=== PATIENT | male | born 1955 | race Caucasian/White ===

== ENCOUNTER 2017-08-28 14:40 | Inpatient (IN) | payer MEDICARE ==
[~2017-08-28] VITALS: Ht 182.9 cm; Wt 77.8 kg
[~2017-08-28 14:40] MED LIST: ACETYLCYST200 MG/1 M PO; ADVAIR 500-501 EACH INH; ALBUTEROL0.63 MG/3; ALLEGRA; ASPIRIN325 M2 PO; ASPIRIN81 MG PO; BENICAR; BENICAR20 MG PO; CEFIXIME; COUMADIN; DALIRESP500 MCG PO; DOXYCYCLINE HY100 MG PO; LASIX40 MG PO; LOSARTAN POTASS25 MG PO; MUCINEX; NEXIUM40 MG PO; NICOTINE PATCH1 EAC1 TOP; PLAVIX75 MG PO; PREDNISONE20 MG PO; PRO AIR; PROAIR HFA INH8.5 GM INH; Z DILTIAZEM PO; Z.0.BYSTOLIC5 MG; Z.0.COUMADIN6 MG PO; Z.0.DALIRESP500 MCG; Z.0.LASIX40 MG PO; Z.0.PREDNISONE10 MG; Z.0.SPIRIVA18 MCG INH; ZITHROMAX500 MG
[2017-08-28] MEDS ORDERED: ALBUTEROL SULF 0.083% NEB SOLN 3 ML NEB NEB STA (14:45)
[2017-08-28] MEDS ORDERED: IPRATROPIUM BROMIDE 0.02% 2.5 ML NEB NEB STA (14:45)
[2017-08-28] MEDS ORDERED: MAGNESIUM SULFATE 2GM/50ML 50 ML IV ONE (14:45)
[2017-08-28] MEDS ORDERED: CEFTRIAXONE SOD 1 GM VIAL IV SCH (14:45)
[2017-08-28 15:09] LABS: BASOPHILS # (AUTO) 0.1 (0.0-0.1); BASOPHILS % 0.7 % (0.0-1.0); EOSINOPHILS # (AUTO) 0.1 (0.0-0.4); EOSINOPHILS % 0.3 % (0.0-6.0); HEMATOCRIT 48.9 % (38.2-49.6); HEMOGLOBIN 17.3 g/dL (14.0-18.0); LYMPHOCYTES % 22.9 % (18.0-39.1); MEAN CORPUSCULAR HEMOGLOBIN 31.3 pg (28-32); MEAN CORPUSCULAR HGB CONC 35.4 g/dL (31-35); MEAN CORPUSCULAR VOLUME 88.4 fL (81-99); MONOCYTES # (AUTO) 1.4 (0.2-0.8); NEUTROPHILS # (AUTO) 11.2 (2.1-6.9); NEUTROPHILS % 64.8 % (38.7-80.0); PLATELET COUNT 270 x10e3/uL (140-360); RED BLOOD COUNT 5.53 x10e6/uL (4.3-5.7); RED CELL DISTRIBUTION WIDTH 12.4 % (11.7-14.4)
[2017-08-28 15:20] LABS: INR 1.06; PARTIAL THROMBOPLASTIN TIME 25.2 seconds (23.8-35.5)
[2017-08-28 15:27] LABS: ALANINE AMINOTRANSFERASE 11 IU/L (0-55); ALBUMIN 3.6 g/dL (3.5-5.0); ALBUMIN/GLOBULIN RATIO 0.8 (0.8-2.0); ALKALINE PHOSPHATASE 82 IU/L (40-150); ANION GAP 14.7 mmol/L (8-16); BLOOD UREA NITROGEN 19 mg/dL (7-26); BUN/CREATININE RATIO 23 (6-25); CALCIUM 9.7 mg/dL (8.4-10.2); CARBON DIOXIDE 28 mmol/L (22-29); CHLORIDE 102 mmol/L (98-107); CREATINE KINASE 43 IU/L (30-200); CREATININE, SERUM 0.83 mg/dL (0.72-1.25); EST GLOMERULAR FILTRATION RATE > 60 ML/MIN (60-); GLUCOSE 84 mg/dL (74-118); MAGNESIUM 2.5 MG/DL (1.3-2.1); POTASSIUM 3.7 mmol/L (3.5-5.1); SODIUM 141 mmol/L (136-145)
[2017-08-28 15:38] LABS: B-TYPE NATRIURETIC PEPTIDE2 < 10.0 pg/mL (0-100)
[2017-08-28 15:48] LABS: THYROID STIMULATING HORMONE 0.672 uIU/mL (0.350-4.940)
[2017-08-28 16:04] LABS: BILIRUBIN,URINE NEGATIVE (NEGATIVE); CLARITY,URINE CLEAR (CLEAR); COLOR,URINE YELLOW (YELLOW); KETONES,URINE NEGATIVE (NEGATIVE); LEUKOCYTE ESTERASE ,URINE NEGATIVE (NEGATIVE); NITRITE,URINE NEGATIVE (NEGATIVE); PROTEIN,URINE DIPSTICK NEGATIVE (NEGATIVE); URINE UROBILINOGEN 0.2 mg/dL (0.2 - 1)
[2017-08-28 16:15] LABS: WBC,URINE (MAN) 0-5 /HPF (0-5)
[2017-08-28 16:16] LABS: EPITHELIAL CELLS,URINE RARE /LPF
--- NOTE | 2017-08-28 16:20 | Diagnostic Imaging Report ---
PROCEDURE: CHEST SINGLE (PORTABLE) COMPARISON: Patients [facility], DX, CHEST SINGLE (PORTABLE), 01/29/2016, 17:23. INDICATIONS: RESPIRATORY DISTRESS FINDINGS: LUNGS: Bilateral upper lobe bullous change appears more prominent. Chronic appearing basilar interstitial findings. PLEURA: No effusions or pneumothorax. HEART \T\ MEDIASTINUM: The heart is within normal size-limits. BONES \T\ SOFT TISSUES: No acute findings. CONCLUSION: Bilateral upper lobe bullous changes. Goldy Rivers D.O. Dictated by: Goldy Rivers D.O. on 08/28/2017 at 16:21 Electronically approved by: Goldy Rivers D.O. on 08/28/2017 at 16:21
[2017-08-28 16:36] LABS: ABG PH 7.36 (7.31-7.41)
[2017-08-28 16:37] LABS: ABG HCO3 32 mmol/L (23-28); ABG PCO2 55 mmHg (41-51); ABG PO2 364 mmHg (80-105)
[2017-08-28 16:50] LABS: LYMPHOCYTES % (MANUAL) 18 % (19-48); METAMYELOCYTES % (MANUAL) 1 % (0-0); MONOCYTES % (MANUAL) 12 % (3.4-9.0); MYELOCYTES % (MANUAL) 1 % (0-0); NEUTROPHILS % (MANUAL) 64 % (40-74); NUCLEATED RED BLOOD CELLS 1; PLATELET ESTIMATE ADEQUATE; PLATELET MORPHOLOGY COMMENT NORMAL; RBC MORPHOLOGY COMMENT NORMAL
--- OUTSIDE RECORDS SUMMARY | 2017-08-28 18:43 | XMS REPORT ---
Author Author [facility] Address Unknown Phone Unavailable Care Team Providers Care Oral Surgery Physician Name Role Phone RAMAN CROSS Unavailable Unavailable Problems This patient has no known problems. Allergies, Adverse Reactions, Alerts This patient has no known allergies or adverse reactions. Medications This patient has no known medications. Results Test Description Test Time Test Comments Text Results Atomic Results Result Comments CHEST SINGLE (PORTABLE) [place] [address] Patient Name: PERRY CARROLL MR #: [id number] : 1955 Age/Sex: 62/M Req #: [id number] Adm Physician: Ordered by: KHUSHBOO RASMUSSEN UTILITY APPRAISER Report #: [id number] Location: ER Room/Bed: Procedure: [id number] DX/CHEST SINGLE (PORTABLE) Exam Date: 08/28/17 Exam Time: 1500 REPORT STATUS: Signed PROCEDURE: CHEST SINGLE (PORTABLE) COMPARISON: [facility], , CHEST SINGLE (PORTABLE), 01/29/2016, 17:23. INDICATIONS: RESPIRATORY DISTRESS FINDINGS: LUNGS: Bilateral upper lobe bullous change appears more prominent. Chronic appearing basilar interstitial findings. PLEURA: No effusions or pneumothorax. HEART T MEDIASTINUM: The heart is within normal size-limits. BONES T SOFT TISSUES: No acute findings. CONCLUSION: Bilateral upper lobe bullous changes. Felix Rivers D.O. Dictated by: Felix Rivers D.O. on 08/28/2017 at 16:21 Electronically approved by: Felix Rivers D.O. on 08/28/2017 at 16:21 Dictated By: FELIX RIVERS DO 1621 Transcribed By: ОЛЕГ on 08/28/17 1621 COPY TO: KHUSHBOO RASMUSSEN NP
[2017-08-28] MEDS: AZITHROMYCIN 500MG/NS 250 ML 250 ML IV SCH (19:13)
[2017-08-28] MEDS ORDERED: DILTIAZEM 24HR180 M1 PO (19:22)
[2017-08-28] MEDS ORDERED: DUONEB (19:22)
[2017-08-28] MEDS: SALMETEROL/FLUTICASONE 500/50 INH SCH (21:45)
[2017-08-28] MEDS ORDERED: ALBUTEROL SULFATE HFA 8GM INHALATION AEROSOL INH PRN (21:45)
[2017-08-28] MEDS ORDERED: ACETAMINOPHEN 325 MG TAB PO ONE (21:45)
[2017-08-28] MEDS: LOSARTAN POTASSIUM 25 MG TAB PO SCH (21:49)
[2017-08-28] MEDS: ALBUTEROL SULF 0.083% NEB SOLN 3 ML NEB NEB SCH ×2 (22:05→23:00)
[2017-08-28] MEDS: IPRATROPIUM BROMIDE 0.02% 2.5 ML NEB NEB SCH (22:05)
[2017-08-28] MEDS ORDERED: DILTIAZEM HCL 120 MG CAP CD PO ONE (22:23)
[2017-08-28] MEDS: DILTIAZEM HCL 120 MG CAP CD PO SCH (22:33)
[2017-08-28 23:10] VITALS: BP 204/115
[2017-08-28 23:15] VITALS: BP 179/97
[2017-08-28 23:30] VITALS: BP 143/85
[2017-08-28 23:45] VITALS: BP 147/85
[2017-08-29] VITALS (153 sets, daily range): BP systolic 55–211; BP diastolic 34–138
[2017-08-29 01:47] LABS: CREATINE KINASE 70 IU/L (30-200)
[2017-08-29] MEDS: ALBUTEROL SULF 0.083% NEB SOLN 3 ML NEB NEB SCH ×3 (02:10→11:50)
[2017-08-29] MEDS: IPRATROPIUM BROMIDE 0.02% 2.5 ML NEB NEB SCH ×2 (02:10→07:25)
[2017-08-29] MEDS ORDERED: PROPOFOL IV EMULSION 10MG/ML 100 ML ONE ×2 (03:15→10:34)
[2017-08-29] MEDS: CEFTRIAXONE SOD 1 GM VIAL IV SCH ×2 (04:20→15:36)
[2017-08-29] MEDS ORDERED: LORAZEPAM INJ 2 MG/ML VIAL IV PRN ×3 (04:30→15:00)
[2017-08-29] MEDS ORDERED: PROPOFOL IV EMULSION 10 MG/ML 50 ML VIAL IV PRN (04:30)
[2017-08-29] MEDS ORDERED: ACETAMINOPHEN 325 MG SUPP PR PRN (04:30)
[2017-08-29] MEDS ORDERED: LORAZEPAM INJ 2 MG/ML VIAL ONE (04:40)
[2017-08-29 04:44] LABS: ABG HCO3 32 mmol/L (23-28); ABG PCO2 62 mmHg (41-51); ABG PH 7.32 (7.31-7.41); ABG PO2 281 mmHg (80-105)
[2017-08-29] MEDS: LORAZEPAM INJ 2 MG/ML VIAL IV PRN ×4 (04:52→07:24)
--- NOTE | 2017-08-29 05:29 | Diagnostic Imaging Report ---
EXAMINATION: CHEST SINGLE (PORTABLE) INDICATION: Status post intubation COMPARISON: 08/28/2017 FINDINGS: TUBES and LINES: Endotracheal tube is visualized in good position 6 cm above the hallie. LUNGS: Lungs are well inflated. Decreased lung volume in the left lung base compatible with atelectasis versus aspiration. There is no evidence of pneumonia or pulmonary edema. PLEURA: No pleural effusion or pneumothorax. HEART AND MEDIASTINUM: The cardiomediastinal silhouette is unremarkable. There are atherosclerotic calcifications within the aorta. BONES AND SOFT TISSUES: No acute osseous lesion. Soft tissues are unremarkable. UPPER ABDOMEN: No free air under the diaphragm. IMPRESSION: 1. Minimal airspace opacity in the left lung base compatible with atelectasis versus aspiration. 2. Endotracheal tube is in good position. Signed by: Dr. Jayme Vieira M.D. on 08/29/2017 5:26 AM
[2017-08-29] MEDS ORDERED: HALOPERIDOL LACTATE 5 MG/ML VIAL IV PRN (05:30)
[2017-08-29] MEDS ORDERED: SODIUM CHLORIDE 0.45% 1,000 ML ONE (05:44)
[2017-08-29] MEDS ORDERED: SODIUM CHLORIDE 0.9% 1000ML 1,000 ML ONE ×2 (05:57→07:13)
[2017-08-29] MEDS ORDERED: SODIUM CHLORIDE 0.9% 1000ML 1,000 ML IV ONE (06:00)
[2017-08-29] MEDS: TIOTROPIUM 18 MCG INH POWDER INH SCH (06:00)
[2017-08-29] MEDS: SALMETEROL/FLUTICASONE 500/50 INH SCH ×2 (07:00→19:00)
[2017-08-29] MEDS ORDERED: IPRATROPIU0.2 MG/1 M NEB ×2 (07:40→07:41)
[2017-08-29] MEDS ORDERED: PREDNISONE20 MG PO (07:43)
[2017-08-29] MEDS ORDERED: ACETAMINOPHEN325 M1 PO (07:44)
[2017-08-29] MEDS ORDERED: DIPHENHYDRAMINE25 MG PO (07:45)
[2017-08-29] MEDS ORDERED: ASPIRIN81 MG (07:45)
[2017-08-29] MEDS ORDERED: SODIUM CHLORIDE 0.9% 1000ML 500 ML IV ONE (07:45)
[2017-08-29] MEDS ORDERED: FENTANYL CITRATE INJ 2,000 MCG in SODIUM CHLORIDE 0.9% 250ML 210 ML IV PRN (07:45)
[2017-08-29 08:08] LABS: BASOPHILS # (AUTO) 0.1 (0.0-0.1); BASOPHILS % 0.5 % (0.0-1.0); EOSINOPHILS # (AUTO) 0.1 (0.0-0.4); EOSINOPHILS % 0.6 % (0.0-6.0); HEMATOCRIT 41.5 % (38.2-49.6); LYMPHOCYTES # (AUTO) 3.9 (1.0-3.2); LYMPHOCYTES % 20.4 % (18.0-39.1); MEAN CORPUSCULAR HGB CONC 33.7 g/dL (31-35); MONOCYTES # (AUTO) 2.1 (0.2-0.8); MONOCYTES % 11.1 % (4.4-11.3); NEUTROPHILS # (AUTO) 12.5 (2.1-6.9); NEUTROPHILS % 64.6 % (38.7-80.0); PLATELET COUNT 204 x10e3/uL (140-360); RED BLOOD COUNT 4.51 x10e6/uL (4.3-5.7); RED CELL DISTRIBUTION WIDTH 12.8 % (11.7-14.4)
[2017-08-29] MEDS: NOREPINEPHRINE INJ 4MG/4ML 8 MG in DEXTROSE 5% 250ML 250 ML IV SCH (08:20)
[2017-08-29 08:25] LABS: ALANINE AMINOTRANSFERASE 9 IU/L (0-55); ALBUMIN 2.7 g/dL (3.5-5.0); ALBUMIN/GLOBULIN RATIO 0.9 (0.8-2.0); ALKALINE PHOSPHATASE 61 IU/L (40-150); ANION GAP 11.8 mmol/L (8-16); BLOOD UREA NITROGEN 19 mg/dL (7-26); BUN/CREATININE RATIO 19 (6-25); CALCIUM 8.3 mg/dL (8.4-10.2); CARBON DIOXIDE 28 mmol/L (22-29); CHLORIDE 105 mmol/L (98-107); EST GLOMERULAR FILTRATION RATE > 60 ML/MIN (60-); GLUCOSE 92 mg/dL (74-118); MAGNESIUM 2.1 MG/DL (1.3-2.1); POTASSIUM 3.8 mmol/L (3.5-5.1); SODIUM 141 mmol/L (136-145)
[2017-08-29 08:35] LABS: CREATINE KINASE 191 IU/L (30-200)
[2017-08-29] MEDS ORDERED: ACETAMINOPHEN 325 MG TAB PO PRN (08:45)
[2017-08-29 09:00] LABS: ANISOCYTOSIS SLIGHT; LYMPHOCYTES % (MANUAL) 24 % (19-48); MONOCYTES % (MANUAL) 10 % (3.4-9.0); MYELOCYTES % (MANUAL) 1 % (0-0); NEUTROPHILS % (MANUAL) 65 % (40-74); PLATELET ESTIMATE ADEQUATE
[2017-08-29] MEDS: LOSARTAN POTASSIUM 25 MG TAB PO SCH (09:00)
[2017-08-29] MEDS: ASPIRIN 81 MG CHEW TAB PO SCH (09:00)
[2017-08-29] MEDS: (Roflumilast (Daliresp) 500 MCG) PO SCH (09:00)
[2017-08-29] MEDS: DILTIAZEM HCL 120 MG CAP CD PO SCH (09:00)
[2017-08-29] MEDS ORDERED: AZITHROMYCIN 500MG/SOD CHL 0.9% 250ML BAG IV SCH (09:00)
[2017-08-29 09:01] LABS: PLATELET MORPHOLOGY COMMENT NORMAL; RBC MORPHOLOGY COMMENT NORMAL
[2017-08-29] MEDS: METHYLPREDNISOLONE SOD SUCC 125 MG/2ML VIAL IV SCH ×2 (09:46→20:09)
[2017-08-29] MEDS: PROPOFOL IV EMULSION 10MG/ML 100 ML IV PRN ×4 (10:42→21:00)
--- NOTE | 2017-08-29 13:52 | Diagnostic Imaging Report ---
PROCEDURE: A single AP view of the chest. COMPARISON: Portable chest 08/29/2017 at 0342 hrs.. INDICATIONS: PICC LINE PLACEMENT FINDINGS: Lines/tubes: Endotracheal catheter is present with the tip projecting over the expected region of the trachea, positioned 3 cm from the hallie. Right peripherally inserted central venous catheter with tip projecting over the expected region of the superior vena cava. Lungs: Bibasilar atelectasis. No parenchymal mass. No focal consolidation. Pleura: There is no pleural effusion or pneumothorax. Heart and mediastinum: The heart and the mediastinum are unremarkable. Bones: No acute bony abnormality. Degenerative changes of the thoracic spine. IMPRESSION: No acute radiographic abnormality. Dictated by: Teddy Jones M.D. on 08/29/2017 at 13:53 Electronically approved by: Teddy Jones M.D. on 08/29/2017 at 13:53
--- NOTE | 2017-08-29 14:20 | Consultation ---
DATE OF CONSULTATION: PULMONARY/CRITICAL CARE CONSULTATION CHIEF COMPLAINT: Is worsening dyspnea and congestion. HISTORY OF PRESENT ILLNESS: The patient is a 62-year-old man. He has a history of COPD. He uses inhalers and oxygen at home. He also has a nebulizer treatment. Over the past 4 to 7 days, he reports worsening congestion and cough. Cough is productive of discolored phlegm. He went to the PCP. He received some antibiotics and some prednisone with minimal benefit. He subsequently came to the emergency department last night. He was intubated because of a high CO2 and is now on the ventilator in the ICU. PAST SURGICAL HISTORY: Status post cardiac stent several years ago. PAST MEDICAL HISTORY: 1. COPD. 2. Atrial fibrillation. SOCIAL HISTORY: The patient quit smoking 4 or 5 years ago. He does not drink. ALLERGIES: HE IS ALLERGIC TO LEVAQUIN AND CIPRO. FAMILY HISTORY: Family history is noncontributory. REVIEW OF SYSTEMS: The patient does not have any fever. He does not complain of headache. There is no neck pain. He does not report chest pain. He reports congestion in his chest as well as phlegm production. He does not have any abdominal pain. He has no nausea or vomiting. He has no leg edema. PHYSICAL EXAMINATION: VITAL SIGNS: The patient is afebrile. The vital signs are stable. HEENT: Examination shows no facial swelling or erythema. The nasal mucosa is normal. The oropharynx is normal. LYMPHATIC: Examination shows no submandibular, cervical or supraclavicular adenopathy. CARDIAC: Exam reveals a regular rate and rhythm with a normal S1 and S2. LUNGS: Auscultation reveals rhonchorous breath sounds bilaterally. There is no wheezing. ABDOMEN: Is soft and nontender. There is no rebound or guarding. EXTREMITIES: Examination shows no leg edema or calf tenderness. There is no cyanosis or clubbing. RADIOGRAPHIC DATA: The chest x-ray shows some opacity of the left lung base. There is an endotracheal tube in place. LABORATORY DATA: The white blood cell count is 19, and the platelet count is 204. The hemoglobin is normal. The UGK-cq-gfvmochryw ratio is normal. The other electrolytes are within normal limits. IMPRESSIONS: 1. Ngmrm-fv-nhjepgt respiratory failure. 2. Chronic obstructive pulmonary disease with acute exacerbation. 3. Atrial fibrillation. PLAN: 1. The patient will receive Solu-Medrol 1 mg per kg twice daily. 2. Begin on antibiotics. 3. Panculture the patient. 4. We will attempt a spontaneous breathing trial. Depending on these results, he may or may not be extubated. 5. Nutritional evaluation. Job#: [id number] EV
[2017-08-29] MEDS: ALBUTEROL/IPRATROPIUM 3 ML NEB NEB SCH ×4 (14:41→23:15)
[2017-08-29 14:59] LABS: ABG HCO3 31 mmol/L (23-28); ABG PCO2 63 mmHg (41-51); ABG PO2 90 mmHg (80-105)
[2017-08-29] MEDS: ENOXAPARIN SOD INJ 40 MG/0.4 ML SYR SC SCH (16:56)
[2017-08-29 18:15] LABS: CREATINE KINASE MB 3.2 ng/mL (0-5.0)
[2017-08-29] MEDS: AZITHROMYCIN 500MG/NS 250 ML 250 ML IV SCH (18:30)
[2017-08-30] VITALS (93 sets, daily range): BP systolic 95–151; BP diastolic 62–89
[2017-08-30] MEDS: PROPOFOL IV EMULSION 10MG/ML 100 ML IV PRN ×5 (00:59→19:45)
[2017-08-30] MEDS: ALBUTEROL/IPRATROPIUM 3 ML NEB NEB SCH ×6 (02:45→23:45)
[2017-08-30] MEDS: CEFTRIAXONE SOD 1 GM VIAL IV SCH ×2 (03:45→15:53)
[2017-08-30] MEDS: TIOTROPIUM 18 MCG INH POWDER INH SCH (05:12)
[2017-08-30 06:10] LABS: BASOPHILS % 0.2 % (0.0-1.0); HEMATOCRIT 41.9 % (38.2-49.6); HEMOGLOBIN 14.3 g/dL (14.0-18.0); LYMPHOCYTES # (AUTO) 0.9 (1.0-3.2); LYMPHOCYTES % 5.2 % (18.0-39.1); MEAN CORPUSCULAR HGB CONC 34.1 g/dL (31-35); MEAN CORPUSCULAR VOLUME 90.9 fL (81-99); MONOCYTES # (AUTO) 0.6 (0.2-0.8); MONOCYTES % 3.5 % (4.4-11.3); NEUTROPHILS % 88.5 % (38.7-80.0); PLATELET COUNT 198 x10e3/uL (140-360); RED BLOOD COUNT 4.61 x10e6/uL (4.3-5.7); RED CELL DISTRIBUTION WIDTH 12.7 % (11.7-14.4)
[2017-08-30 06:29] LABS: ALANINE AMINOTRANSFERASE 10 IU/L (0-55); ALBUMIN 2.8 g/dL (3.5-5.0); ALBUMIN/GLOBULIN RATIO 0.8 (0.8-2.0); ALKALINE PHOSPHATASE 64 IU/L (40-150); ANION GAP 14.3 mmol/L (8-16); BLOOD UREA NITROGEN 22 mg/dL (7-26); BUN/CREATININE RATIO 28 (6-25); CALCIUM 8.9 mg/dL (8.4-10.2); CARBON DIOXIDE 24 mmol/L (22-29); CHLORIDE 106 mmol/L (98-107); EST GLOMERULAR FILTRATION RATE > 60 ML/MIN (60-); GLUCOSE 132 mg/dL (74-118); POTASSIUM 4.3 mmol/L (3.5-5.1); SODIUM 140 mmol/L (136-145)
[2017-08-30] MEDS: SALMETEROL/FLUTICASONE 500/50 INH SCH ×2 (07:00→19:00)
[2017-08-30] MEDS: NOREPINEPHRINE INJ 4MG/4ML 8 MG in DEXTROSE 5% 250ML 250 ML IV SCH (07:15)
--- NOTE | 2017-08-30 07:15 | Diagnostic Imaging Report ---
EXAMINATION: CHEST SINGLE (PORTABLE) INDICATION: Respiratory failure. COMPARISON: 08/29/2017 FINDINGS: TUBES and LINES: Endotracheal tube has been repositioned now 9.1 cm above the hallie. Repositioning is recommended. Right PICC line is in good position LUNGS: Lungs are well inflated. There are bibasilar atelectasis. There is mild prominence of the central pulmonary vasculature, consistent with pulmonary venous congestion. PLEURA: No pleural effusion or pneumothorax. HEART AND MEDIASTINUM: The cardiomediastinal silhouette is unremarkable. There are atherosclerotic calcifications within the aorta. BONES AND SOFT TISSUES: No acute osseous lesion. Soft tissues are unremarkable. UPPER ABDOMEN: No free air under the diaphragm. IMPRESSION: 1. Minimal airspace opacity in the left lung base compatible with atelectasis. 2. Repositioning of endotracheal tube is recommended by advancement of 3 to 4 cm. Signed by: Dr. Jayme Vieira M.D. on 08/30/2017 7:11 AM
[2017-08-30 08:33] LABS: LYMPHOCYTES % (MANUAL) 2 % (19-48); METAMYELOCYTES % (MANUAL) 1 % (0-0); MONOCYTES % (MANUAL) 4 % (3.4-9.0); MYELOCYTES % (MANUAL) 2 % (0-0); NEUTROPHILS % (MANUAL) 91 % (40-74)
[2017-08-30 08:34] LABS: ANISOCYTOSIS SLIGHT; PLATELET ESTIMATE ADEQUATE; PLATELET MORPHOLOGY COMMENT NORMAL; RBC MORPHOLOGY COMMENT NORMAL
--- NOTE | 2017-08-30 08:43 | Diagnostic Imaging Report ---
PROCEDURE: CHEST SINGLE (PORTABLE) COMPARISON: 08/30/2017 at 0605. INDICATIONS: ENDOTRACHEAL TUBE PLACEMENT FINDINGS: Endotracheal tube has been advanced. The tip now projects approximately 4 cm above the hallie. Right upper extremity PICC is unchanged in position. Lungs remain hyperinflated with fibrotic change or subsegmental atelectasis in the left lung base. Left lateral costophrenic sulcus is not included on the radiograph. Cardiomediastinal contour is unchanged. No acute osseous abnormality. CONCLUSION: Endotracheal tube has been advanced. The tip now projects approximately 4 cm above the hallie. Otherwise stable chest relative to 0605 hrs. Dictated by: Chris Marti M.D. on 08/30/2017 at 8:44 Electronically approved by: Chris Marti M.D. on 08/30/2017 at 8:44
[2017-08-30] MEDS ORDERED: FUROSEMIDE INJ 10 MG/ML 2 ML VIAL IV ONE (08:45)
[2017-08-30] MEDS ORDERED: FUROSEMIDE INJ 10 MG/ML 2 ML VIAL ONE (08:49)
[2017-08-30] MEDS: METHYLPREDNISOLONE SOD SUCC 125 MG/2ML VIAL IV SCH ×2 (08:56→21:03)
[2017-08-30] MEDS: DILTIAZEM HCL 120 MG CAP CD PO SCH (09:00)
[2017-08-30] MEDS: ASPIRIN 81 MG CHEW TAB PO SCH (09:00)
[2017-08-30] MEDS: LOSARTAN POTASSIUM 25 MG TAB PO SCH (09:00)
[2017-08-30] MEDS: (Roflumilast (Daliresp) 500 MCG) PO SCH (09:00)
[2017-08-30 11:55] LABS: ABG HCO3 33 mmol/L (23-28); ABG PCO2 48 mmHg (41-51); ABG PH 7.44 (7.31-7.41); ABG PO2 75 mmHg (80-105)
[2017-08-30] MEDS ORDERED: VECURONIUM BROMIDE FOR INJ 20 MG VIAL ONE (12:02)
[2017-08-30] MEDS ORDERED: ETOMIDATE 40 MG/ 20ML VIAL IV ONE (12:02)
[2017-08-30] MEDS ORDERED: SUCCINYLCHOLINE CHLORIDE 20 MG/ML 10ML VIAL ONE (12:02)
[2017-08-30] MEDS: ENOXAPARIN SOD INJ 40 MG/0.4 ML SYR SC SCH (16:46)
[2017-08-30] MEDS: AZITHROMYCIN 500MG/NS 250 ML 250 ML IV SCH ×2 (16:49→17:45)
--- NOTE | 2017-08-30 19:53 | Progress Note ---
DATE: PULMONARY PROGRESS NOTE The patient received some Lasix this morning, and was -700 mL. The patient was placed on a spontaneous breathing trial, and did well for about an hour, but then developed tachypnea in the low 30s. He was subsequently switched back to PRVC mode of ventilation. The patient has been weaned off Levophed, but remains on propofol. PHYSICAL EXAMINATION VITALS: The patient is afebrile. Blood pressure 121/76, pulse 90-100. HEENT: Shows no facial swelling. No erythema. There is an orotracheal endotracheal tube in place. LYMPHATICS: Shows no submandibular, cervical or supraclavicular adenopathy. CARDIAC: Reveals a regular rate and rhythm with a normal S1 and S2. There are no murmurs or rubs. LUNGS: Auscultation of the lungs reveals a prolonged expiratory phase bilaterally. ABDOMEN: Soft and nontender. There is no rebound or guarding. EXTREMITIES: Shows no leg edema or calf tenderness. There is no cyanosis or clubbing. SKIN: Shows no rashes. NEUROLOGICAL: Shows no focal abnormalities. LABORATORY DATA: The BUN to creatinine ratio is normal. The other electrolytes are within normal limits. The white blood cell count is 17 and the hemoglobin is 14.3. The platelet count is 198,000. RADIOGRAPHIC DATA: Chest x-ray shows endotracheal tube in good position. There are hyperinflated lungs. IMPRESSION 1. Pxebc-ki-trkwrxa hypercapnic respiratory failure. 2. Chronic obstructive pulmonary disease. 3. Hypertension. 4. Fever. PLAN 1. The patient will be continued on assist control for tonight. We will reattempt the spontaneous breathing trial tomorrow. 2. Continue antibiotics. 3. Continue prednisone at 1 mg/kg twice daily. 4. Continue on Diprivan for sedation. 5. Repeat chest x-ray in the morning. 6. Repeat Lasix tomorrow morning. 7. Case was discussed with nursing and with the family. I spent 35 minutes in direct critical care time on 2 separate visits, one at 8:30 a.m. and one at 3:30 p.m. Job#: [id number] CO
[2017-08-31] VITALS (79 sets, daily range): BP systolic 110–158; BP diastolic 59–98
[2017-08-31] MEDS: CEFTRIAXONE SOD 1 GM VIAL IV SCH ×2 (01:58→18:33)
[2017-08-31] MEDS: PROPOFOL IV EMULSION 10MG/ML 100 ML IV PRN (01:58)
[2017-08-31] MEDS: ALBUTEROL/IPRATROPIUM 3 ML NEB NEB SCH ×6 (03:05→22:48)
[2017-08-31] MEDS: TIOTROPIUM 18 MCG INH POWDER INH SCH (05:05)
[2017-08-31 06:22] LABS: BASOPHILS % 0.2 % (0.0-1.0); HEMATOCRIT 40.7 % (38.2-49.6); HEMOGLOBIN 13.7 g/dL (14.0-18.0); LYMPHOCYTES # (AUTO) 0.8 (1.0-3.2); LYMPHOCYTES % 3.4 % (18.0-39.1); MEAN CORPUSCULAR HEMOGLOBIN 30.8 pg (28-32); MEAN CORPUSCULAR HGB CONC 33.7 g/dL (31-35); MEAN CORPUSCULAR VOLUME 91.5 fL (81-99); MONOCYTES # (AUTO) 1.4 (0.2-0.8); MONOCYTES % 6.1 % (4.4-11.3); NEUTROPHILS # (AUTO) 20.3 (2.1-6.9); NEUTROPHILS % 88.7 % (38.7-80.0); PLATELET COUNT 194 x10e3/uL (140-360); RED BLOOD COUNT 4.45 x10e6/uL (4.3-5.7); RED CELL DISTRIBUTION WIDTH 12.4 % (11.7-14.4)
[2017-08-31 06:42] LABS: ALANINE AMINOTRANSFERASE 11 IU/L (0-55); ALBUMIN 2.8 g/dL (3.5-5.0); ALBUMIN/GLOBULIN RATIO 0.9 (0.8-2.0); ALKALINE PHOSPHATASE 56 IU/L (40-150); ANION GAP 13.4 mmol/L (8-16); BLOOD UREA NITROGEN 31 mg/dL (7-26); CALCIUM 8.7 mg/dL (8.4-10.2); CARBON DIOXIDE 27 mmol/L (22-29); CHLORIDE 107 mmol/L (98-107); GLUCOSE 119 mg/dL (74-118); POTASSIUM 4.4 mmol/L (3.5-5.1); SODIUM 143 mmol/L (136-145)
[2017-08-31 06:52] LABS: BUN/CREATININE RATIO 42 (6-25); CREATININE, SERUM 0.73 mg/dL (0.72-1.25); EST GLOMERULAR FILTRATION RATE > 60 ML/MIN (60-)
[2017-08-31] MEDS: SALMETEROL/FLUTICASONE 500/50 INH SCH ×2 (07:00→18:49)
--- NOTE | 2017-08-31 07:06 | Diagnostic Imaging Report ---
EXAMINATION: CHEST SINGLE (PORTABLE) INDICATION: Respiratory failure COMPARISON: 08/30/2017 FINDINGS: TUBES and LINES: Right upper extremity PICC line in good position with tip at the level of the mid SVC. Endotracheal tube in good position 4.5 cm above the hallie. LUNGS: Lungs are well inflated. Airspace disease involving the bilateral lower lobes left greater than right compatible with aspiration versus atelectasis. PLEURA: No pleural effusion or pneumothorax. HEART AND MEDIASTINUM: The cardiomediastinal silhouette is unremarkable. BONES AND SOFT TISSUES: No acute osseous lesion. Soft tissues are unremarkable. UPPER ABDOMEN: No free air under the diaphragm. IMPRESSION: Bibasilar disease may represent aspiration versus atelectasis. Signed by: Dr. Jayme Vieira M.D. on 08/31/2017 7:02 AM
[2017-08-31] MEDS ORDERED: NOREPINEPHRINE INJ 4MG/4ML 8 MG in DEXTROSE 5% 250ML 250 ML IV PRN (07:45)
[2017-08-31 08:49] LABS: LYMPHOCYTES % (MANUAL) 5 % (19-48); MONOCYTES % (MANUAL) 5 % (3.4-9.0); MYELOCYTES % (MANUAL) 1 % (0-0); NEUTROPHILS % (MANUAL) 88 % (40-74); RBC MORPHOLOGY COMMENT NORMAL
[2017-08-31 08:50] LABS: PLATELET ESTIMATE ADEQUATE; PLATELET MORPHOLOGY COMMENT NORMAL
[2017-08-31] MEDS: LOSARTAN POTASSIUM 25 MG TAB PO SCH (09:00)
[2017-08-31] MEDS: ASPIRIN 81 MG CHEW TAB PO SCH (09:00)
[2017-08-31] MEDS: (Roflumilast (Daliresp) 500 MCG) PO SCH (09:00)
[2017-08-31] MEDS: DILTIAZEM HCL 120 MG CAP CD PO SCH (09:00)
[2017-08-31 10:09] LABS: ABG HCO3 31 mmol/L (23-28); ABG PCO2 45 mmHg (41-51); ABG PH 7.45 (7.31-7.41); ABG PO2 65 mmHg (80-105)
[2017-08-31] MEDS: METHYLPREDNISOLONE SOD SUCC 125 MG/2ML VIAL IV SCH ×2 (10:26→20:33)
[2017-08-31] MEDS ORDERED: FUROSEMIDE INJ 10 MG/ML 2 ML VIAL IV ONE (14:00)
[2017-08-31] MEDS ORDERED: DILTIAZEM HCL VIAL 5 ML ONE (14:36)
[2017-08-31] MEDS ORDERED: DILTIAZEM HCL IV SOLN 125 MG in SODIUM CHLORIDE 0.9% 100 ML 100 ML IV SCH (14:38)
[2017-08-31] MEDS ORDERED: DILTIAZEM HCL 5 MG/ML 5 ML VIAL IV ONE (14:45)
[2017-08-31] MEDS: ENOXAPARIN SOD INJ 40 MG/0.4 ML SYR SC SCH (18:33)
[2017-08-31] MEDS: AZITHROMYCIN 500MG/NS 250 ML 250 ML IV SCH (18:33)
[2017-09-01] VITALS (31 sets, daily range): BP systolic 119–173; BP diastolic 49–100
[2017-09-01] MEDS: ALBUTEROL/IPRATROPIUM 3 ML NEB NEB SCH ×6 (03:08→23:25)
[2017-09-01] MEDS: CEFTRIAXONE SOD 1 GM VIAL IV SCH ×2 (03:50→15:15)
[2017-09-01] MEDS: TIOTROPIUM 18 MCG INH POWDER INH SCH ×2 (06:00→19:20)
[2017-09-01 06:01] LABS: BASOPHILS % 0.1 % (0.0-1.0); HEMATOCRIT 40.3 % (38.2-49.6); HEMOGLOBIN 13.7 g/dL (14.0-18.0); LYMPHOCYTES # (AUTO) 0.5 (1.0-3.2); LYMPHOCYTES % 3.4 % (18.0-39.1); MEAN CORPUSCULAR HEMOGLOBIN 31.1 pg (28-32); MEAN CORPUSCULAR VOLUME 91.4 fL (81-99); MONOCYTES # (AUTO) 0.7 (0.2-0.8); MONOCYTES % 4.7 % (4.4-11.3); NEUTROPHILS # (AUTO) 14.3 (2.1-6.9); PLATELET COUNT 177 x10e3/uL (140-360); RED BLOOD COUNT 4.41 x10e6/uL (4.3-5.7); RED CELL DISTRIBUTION WIDTH 12.4 % (11.7-14.4)
[2017-09-01 06:15] LABS: ALANINE AMINOTRANSFERASE 11 IU/L (0-55); ALBUMIN 2.7 g/dL (3.5-5.0); ALBUMIN/GLOBULIN RATIO 0.8 (0.8-2.0); ALKALINE PHOSPHATASE 53 IU/L (40-150); ANION GAP 13.3 mmol/L (8-16); BLOOD UREA NITROGEN 30 mg/dL (7-26); BUN/CREATININE RATIO 43 (6-25); CALCIUM 8.9 mg/dL (8.4-10.2); CARBON DIOXIDE 30 mmol/L (22-29); CHLORIDE 105 mmol/L (98-107); CREATININE, SERUM 0.69 mg/dL (0.72-1.25); EST GLOMERULAR FILTRATION RATE > 60 ML/MIN (60-); GLUCOSE 133 mg/dL (74-118); POTASSIUM 4.3 mmol/L (3.5-5.1); SODIUM 144 mmol/L (136-145)
[2017-09-01] MEDS: SALMETEROL/FLUTICASONE 500/50 INH SCH ×2 (07:34→19:20)
[2017-09-01] MEDS: ASPIRIN 81 MG CHEW TAB PO SCH (08:28)
[2017-09-01] MEDS: DILTIAZEM HCL 120 MG CAP CD PO SCH (08:28)
[2017-09-01] MEDS: LOSARTAN POTASSIUM 25 MG TAB PO SCH (08:28)
[2017-09-01] MEDS: METHYLPREDNISOLONE SOD SUCC 125 MG/2ML VIAL IV SCH (08:28)
[2017-09-01] MEDS: (Roflumilast (Daliresp) 500 MCG) PO SCH (08:29)
[2017-09-01] MEDS ORDERED: LACTULOSE SYRUP 20 GM/30 ML UDC PO PRN (09:30)
[2017-09-01] MEDS ORDERED: BISACODYL 10 MG SUPP PR ONE (10:00)
[2017-09-01 13:38] LABS: LYMPHOCYTES % (MANUAL) 4 % (19-48); MONOCYTES % (MANUAL) 5 % (3.4-9.0); NEUTROPHILS % (MANUAL) 89 % (40-74)
[2017-09-01 13:39] LABS: BAND NEUTROPHILS % (MANUAL) 2 %; PLATELET ESTIMATE ADEQUATE; PLATELET MORPHOLOGY COMMENT NORMAL; RBC MORPHOLOGY COMMENT NORMAL
[2017-09-01] MEDS: ENOXAPARIN SOD INJ 40 MG/0.4 ML SYR SC SCH (18:18)
[2017-09-01] MEDS: AZITHROMYCIN 500MG/NS 250 ML 250 ML IV SCH (18:18)
[2017-09-01] MEDS: METHYLPREDNISOLONE SOD SUCC 40 MG/ML VIAL IV SCH (20:16)
[2017-09-02] VITALS: BP 151/90
[2017-09-02] MEDS: CEFTRIAXONE SOD 1 GM VIAL IV SCH ×2 (03:00→15:10)
[2017-09-02] MEDS: ALBUTEROL/IPRATROPIUM 3 ML NEB NEB SCH ×5 (03:24→18:55)
[2017-09-02 04:00] VITALS: BP 145/84
[2017-09-02] MEDS: SALMETEROL/FLUTICASONE 500/50 INH SCH ×2 (07:00→18:55)
[2017-09-02 07:51] LABS: BASOPHILS % 0.1 % (0.0-1.0); HEMATOCRIT 42.4 % (38.2-49.6); HEMOGLOBIN 14.4 g/dL (14.0-18.0); LYMPHOCYTES # (AUTO) 0.7 (1.0-3.2); LYMPHOCYTES % 5.3 % (18.0-39.1); MEAN CORPUSCULAR HEMOGLOBIN 31.3 pg (28-32); MEAN CORPUSCULAR VOLUME 92.2 fL (81-99); MONOCYTES # (AUTO) 0.9 (0.2-0.8); MONOCYTES % 6.6 % (4.4-11.3); NEUTROPHILS # (AUTO) 11.9 (2.1-6.9); PLATELET COUNT 206 x10e3/uL (140-360); RED CELL DISTRIBUTION WIDTH 12.3 % (11.7-14.4)
[2017-09-02 08:00] VITALS: BP 168/66
[2017-09-02 08:27] LABS: ALANINE AMINOTRANSFERASE 15 IU/L (0-55); ALBUMIN 2.8 g/dL (3.5-5.0); ALBUMIN/GLOBULIN RATIO 0.7 (0.8-2.0); ALKALINE PHOSPHATASE 52 IU/L (40-150); ANION GAP 13.8 mmol/L (8-16); BLOOD UREA NITROGEN 27 mg/dL (7-26); BUN/CREATININE RATIO 42 (6-25); CALCIUM 9.3 mg/dL (8.4-10.2); CARBON DIOXIDE 29 mmol/L (22-29); CHLORIDE 106 mmol/L (98-107); CREATININE, SERUM 0.65 mg/dL (0.72-1.25); EST GLOMERULAR FILTRATION RATE > 60 ML/MIN (60-); GLUCOSE 101 mg/dL (74-118); POTASSIUM 3.8 mmol/L (3.5-5.1); SODIUM 145 mmol/L (136-145)
[2017-09-02] MEDS: (Roflumilast (Daliresp) 500 MCG) PO SCH (09:00)
[2017-09-02] MEDS: ASPIRIN 81 MG CHEW TAB PO SCH (09:02)
[2017-09-02] MEDS: METHYLPREDNISOLONE SOD SUCC 40 MG/ML VIAL IV SCH ×2 (09:02→20:33)
[2017-09-02] MEDS: DILTIAZEM HCL 120 MG CAP CD PO SCH (09:03)
[2017-09-02] MEDS: LOSARTAN POTASSIUM 25 MG TAB PO SCH (09:03)
--- NOTE | 2017-09-02 10:53 | Diagnostic Imaging Report ---
EXAMINATION: Chest, CHEST 2 VIEWS INDICATION: Chest pain COMPARISON: Portable chest 08/31/2017 FINDINGS: LINES: Right peripherally inserted central venous catheter with tip projecting over the expected region of the superior vena cava. Heart: Normal cardiac silhouette. Vascular: The pulmonary vasculature is within normal limits. Atherosclerotic calcifications of the aortic arch. Mediastinum: No mediastinal, hilar, or axillary mass or lymphadenopathy. Lungs: No parenchymal mass. Stable bibasilar airspace opacities. Pleura: No pleural effusion. No pneumothorax. Bones: No acute osseous abnormality. Degenerative changes of the thoracic spine. Soft tissues: Normal. Impression: Stable bibasilar airspace opacities may represent atelectasis or developing pneumonia. Signed by: Dr. Teddy Jones M.D. on 09/02/2017 10:27 AM
[2017-09-02 12:00] VITALS: BP 167/88
[2017-09-02 16:00] VITALS: BP 147/77
[2017-09-02] MEDS: AZITHROMYCIN 500MG/NS 250 ML 250 ML IV SCH (17:58)
[2017-09-02] MEDS: ENOXAPARIN SOD INJ 40 MG/0.4 ML SYR SC SCH (17:58)
[2017-09-02] MEDS: TIOTROPIUM 18 MCG INH POWDER INH SCH (18:55)
[2017-09-02 19:38] VITALS: BP 136/65
[2017-09-03] VITALS (8 sets, daily range): BP systolic 143–166; BP diastolic 67–80
[2017-09-03] MEDS: ALBUTEROL/IPRATROPIUM 3 ML NEB NEB SCH ×6 (02:55→22:10)
[2017-09-03] MEDS: CEFTRIAXONE SOD 1 GM VIAL IV SCH ×2 (03:00→14:47)
[2017-09-03] MEDS: SALMETEROL/FLUTICASONE 500/50 INH SCH ×2 (07:10→19:00)
[2017-09-03] MEDS: (Roflumilast (Daliresp) 500 MCG) PO SCH (09:00)
[2017-09-03] MEDS: LOSARTAN POTASSIUM 25 MG TAB PO SCH (09:10)
[2017-09-03] MEDS: DILTIAZEM HCL 120 MG CAP CD PO SCH (09:10)
[2017-09-03] MEDS: METHYLPREDNISOLONE SOD SUCC 40 MG/ML VIAL IV SCH ×2 (09:10→20:52)
[2017-09-03] MEDS: ASPIRIN 81 MG CHEW TAB PO SCH (09:10)
[2017-09-03] MEDS ORDERED: PREDNISONE10 MG PO (14:15)
[2017-09-03] MEDS ORDERED: AZITHROMYCIN250 MG PO (14:18)
[2017-09-03] MEDS: ENOXAPARIN SOD INJ 40 MG/0.4 ML SYR SC SCH (15:56)
[2017-09-03] MEDS: AZITHROMYCIN 500MG/NS 250 ML 250 ML IV SCH (17:34)
[2017-09-03] MEDS: TIOTROPIUM 18 MCG INH POWDER INH SCH (19:00)
[2017-09-04 00:05] VITALS: BP 158/74
[2017-09-04] MEDS: CEFTRIAXONE SOD 1 GM VIAL IV SCH (02:27)
[2017-09-04] MEDS: ALBUTEROL/IPRATROPIUM 3 ML NEB NEB SCH ×3 (03:00→10:56)
[2017-09-04 04:25] VITALS: BP 151/72
[2017-09-04] MEDS: SALMETEROL/FLUTICASONE 500/50 INH SCH (07:28)
[2017-09-04 07:34] VITALS: BP 167/80
[2017-09-04 07:40] VITALS: BP 167/80
[2017-09-04] MEDS: LOSARTAN POTASSIUM 25 MG TAB PO SCH (07:40)
[2017-09-04] MEDS: DILTIAZEM HCL 120 MG CAP CD PO SCH (07:40)
[2017-09-04] MEDS: ASPIRIN 81 MG CHEW TAB PO SCH (07:40)
[2017-09-04] MEDS: METHYLPREDNISOLONE SOD SUCC 40 MG/ML VIAL IV SCH (07:40)
[2017-09-04] MEDS: (Roflumilast (Daliresp) 500 MCG) PO SCH (09:00)
[2017-09-04 11:45] VITALS: BP 138/65
== END 2017-09-04 14:08 | disposition home or self-care (01) | DRG 208 ==
LOC: ER 14:40 → ERHOLD 18:40 → ICU 22:53 → MED/SURG2 09-01 13:41
PROC: 5A1945Z Respiratory Ventilation, 24-96 Consecutive Hours (ICD-10-PCS; principal; 2017-08-29)
PROC: 0BH17EZ Insertion of Endotracheal Airway into Trachea, Via Natural or Artificial Opening (ICD-10-PCS; 2017-08-29)
PROC: 5A09357 Assistance with Respiratory Ventilation, Less than 24 Consecutive Hours, Continuous Positive Airway Pressure (ICD-10-PCS; 2017-08-29)
PROC: 02HV33Z Insertion of Infusion Device into Superior Vena Cava, Percutaneous Approach (ICD-10-PCS; 2017-08-29)
DX: J96.22 Acute and chronic respiratory failure with hypercapnia (principal); J69.0 Pneumonitis due to inhalation of food and vomit; J44.1 Chronic obstructive pulmonary disease with (acute) exacerbation; I50.22 Chronic systolic (congestive) heart failure; Z87.891 Personal history of nicotine dependence; Z99.81 Dependence on supplemental oxygen; I48.91 Unspecified atrial fibrillation; I11.0 Hypertensive heart disease with heart failure; K59.00 Constipation, unspecified; Z95.5 Presence of coronary angioplasty implant and graft; Z79.52 Long term (current) use of systemic steroids; Z78.1 Physical restraint status; Z88.1 Allergy status to other antibiotic agents
CPT/HCPCS: 36415; 36569; 36600; 71045; 71046; 80053; 81001; 82550; 82553; 82805; 83605; 83735; 83880; 84443; 84484; 85025; 85379; 85610; 85730; 87040; 87070; 87071; 87205; 87400; 93005; 94002; 94003; 94640; 94660; 99284; J0330; J0456; J0696; J1630; J1650; J1940; J2060; J2920; J2930; J7030; J7050